=== PATIENT | male | born 1970 | race Hispanic/Latino ===

== ENCOUNTER 2021-02-23 14:49 | Observation (INO) | payer SELFPAY ==
[2021-02-23 15:31] LABS: Absolute Lymphocytes (CBC) 1.1 K/uL (0.7-4.9); Basophils % 0.3 % (0-1.3); Hematocrit 44.5 % (39.6-49.0); Lymphocytes % 18.5 % (15.3-44.8); MPV 6.9 fL (7.6-11.3)
[2021-02-23 15:50] LABS: Protime INR 1.05
[2021-02-23 15:51] LABS: BUN Blood Urea Nitrogen 11 mg/dL (7-18); Bicarbonate 28 mmol/L (21-32); Glucose Level 103 mg/dL (74-106); Magnesium 2.2 mg/dL (1.8-2.4); NT PRO-BNP 41 pg/mL (<125); Potassium 3.5 mmol/L (3.5-5.1); Sodium Level 141 mmol/L (136-145); Troponin (Emerg Dept Use Only) < 0.02 ng/mL (0.0-0.045)
--- NOTE | 2021-02-23 15:52 | RAD REPORT ---
EXAM DESCRIPTION: RAD - Chest Single View - 02/23/2021 3:45 pm CLINICAL HISTORY: CHEST PAIN COMPARISON: None TECHNIQUE: AP portable chest image was obtained 02/23/2021 3:45 pm . FINDINGS: Lungs are clear. Heart and vasculature are normal. No measurable pleural effusion and no p neumothorax. No acute bony abnormality seen. No acute aortic findings suspected. IMPRESSION: No acute cardiopulmonary process.
--- NOTE | 2021-02-23 17:28 | ER ---
Nurse's Notes [facility] Name: Ramos Rebolledo Age: 51 yrs Sex: Male : 1970 Arrival Date: 02/23/2021 Time: 14:50 Bed 15 Private MD: Diagnosis: Chest pain, unspecified Presentation: 02/23 14:52 Chief complaint: EMS states: "Patient [place], he called the [facility] tw5 guard after complaining of chest pain. He said that his left leg is also numb.". Onset of symptoms is unknown. 14:52 Method Of Arrival: EMS: [facility] tw5 14:52 Acuity: DEEPA 2 tw5 14:55 Coronavirus screen: Vaccine status: Patient reports being unvaccinated. Client denies tw5 travel out of the [place] in the last 14 days. At this time, the client does not indicate any symptoms associated with coronavirus-19. Ebola Screen: No symptoms or risks identified at this time. Initial Sepsis Screen: Does the patient meet any 2 criteria? No. Patient's initial sepsis screen is negative. Does the patient have a suspected source of infection? No. Patient's initial sepsis screen is negative. Risk Assessment: Do you want to hurt yourself or someone else? Patient reports no desire to harm self or others. Triage Assessment: 14:59 General: Appears in no apparent distress. Behavior is calm, cooperative, appropriate tw5 for age, Reports "About an hour ago my heart was pounding and it hurt so bad it made me cry. It doesn't hurt anymore. It lasted for about 4-5 min. It felt like squeezing. It really scared me". Pain: Pain currently is 0 out of 10 on a pain scale. at worst was 10 out of 10 on a pain scale. Historical: - Allergies: 14:59 No Known Allergies; tw5 - Immunization history:: Flu vaccine is not up to date. - Social history:: Smoking status: . - Family history:: not pertinent. - Hospitalizations: : No recent hospitalization is reported. Screenin:03 Abuse screen: Denies threats or abuse. Denies injuries from another. Nutritional tw5 screening: No deficits noted. Tuberculosis screening: No symptoms or risk factors identified. Fall Risk None identified. Assessment: 15:03 General: Appears in no apparent distress. tw5 15:03 General: Reports "I drank some coffee this morning, I dont think that i for me". tw5 16:27 Reassessment: Patient appears in no apparent distress at this time. No changes from tw5 previously documented assessment. General: Reports " No chest pain since being here. Just a little pain in my left leg were I limp'. 17:43 General: Nursing staff spoke with ER provider. Aspirin order cancelled due to the fact tw5 patient already received them by EMS. Vital Signs: 14:55 BP 135 / 96; Pulse 66; Resp 20; Temp 98.7; Pulse Ox 100% ; Weight 86.18 kg; Height 5 tw5 ft. 10 in. (177.80 cm); Pain 0/10; 14:59 BP 135 / 96; Pulse 68; Resp 14; Temp 98.7; Pulse Ox 100% ; Pain 0/10; tw5 16:27 BP 115 / 91; Pulse 65; Resp 14; Pulse Ox 100% on R/A; tw5 17:44 BP 113 / 80; Pulse 71; Resp 16; Pulse Ox 100% on R/A; Pain 0/10; tw5 14:55 Body Mass Index 27.26 (86.18 kg, 177.80 cm) tw5 ED Course: 14:50 Patient arrived in ED. as 14:52 Ana Burton is Primary Nurse. tw5 14:54 Triage completed. tw5 14:59 Davian Morfin MD is Attending Physician. rn 14:59 Arm band placed on right wrist. EKG completed in triage. Results shown to MD. tw5 15:03 Patient has correct armband on for positive identification. Bed in low position. Call tw5 light in reach. Side rails up X2. athletic monitor on. Pulse ox on. NIBP on. Door closed. Lights dimmed. Moved to private room. Verbal reassurance given. 15:20 Inserted saline lock: 20 gauge in right antecubital area, using aseptic technique. dh4 Blood collected. 15:46 XRAY Chest (1 view) In Process Unspecified. EDMS 16:27 No apparent distress. Resting quietly. Awaiting lab results. tw5 16:27 No provider procedures requiring assistance completed. tw5 17:27 Sam Plata is Hospitalizing Provider. rn Administered Medications: 17:43 Not Given (already given by EMS prior to arrival. ): Aspirin Chewable Tablet 324 mg PO tw5 once; 81 mg tablets x 4 Outcome: 17:27 Decision to Hospitalize by Provider. rn 02/24 17:22 Patient left the ED. iw Signatures: Dispatcher [employer] EDMS Arianna Contreras Irene, RN RN iw Nieto, Roman, MD MD rn Huhn, Donald [address] [facility] Ana Burton tw5 Corrections: (The following items were deleted from the chart) 02/23 18:49 18:29 CORONAVIRUS+MR.LAB.RUPERTO drawn and sent. [facility] [place]
--- NOTE | 2021-02-23 17:28 | EDPHYS ---
Physician Documentation [facility] Name: Ramos Rebolledo Age: 51 yrs Sex: Male : 1970 Arrival Date: 02/23/2021 Time: 14:50 Bed 15 Private MD: ED Physician Davian Morfin HPI: 02/23 17:22 This 51 yrs old Male presents to ER via EMS with complaints of Chest Pain. rn 17:22 The patient or guardian reports chest pain that is located primarily in the substernal rn area. Onset: just prior to arrival. The pain radiates to the left arm. Associated signs and symptoms: Pertinent positives: diaphoresis, palpitations, Pertinent negatives: abdominal pain, syncope, vomiting. The chest pain is described as crushing, a heaviness. Duration: The patient or guardian reports a single episode, that is now resolved. Modifying factors: The symptoms are alleviated by nothing. the symptoms are aggravated by nothing. Severity of pain: At its worst the pain was severe in the emergency department the pain has resolved. The patient has experienced a previous episode. The patient has not recently seen a physician. Patient reports substernal crushing chest pain that radiates to the left arm. Began while cooking. Lasted approximately 10 to 20 minutes and now resolved. States had similar pain just not as bad 2 weeks ago. No known cardiac problems. No trauma. Does not feel ill or sick.. Historical: - Allergies: 14:59 No Known Allergies; tw5 - Immunization history:: Flu vaccine is not up to date. - Social history:: Smoking status: . - Family history:: not pertinent. - Hospitalizations: : No recent hospitalization is reported. ROS: 17:22 Constitutional: Negative for fever, chills, and weight loss, Eyes: Negative for injury, rn pain, redness, and discharge, Neck: Negative for injury, pain, and swelling, Cardiovascular: Positive for chest pain Respiratory: Negative for shortness of breath, cough, wheezing, and pleuritic chest pain, Abdomen/GI: Positive for nausea Back: Negative for injury and pain, MS/Extremity: Positive radiation to left arm Skin: Negative for injury, rash, and discoloration, Neuro: Negative for headache, weakness, and seizure. 17:22 All other systems are negative. Exam: 15:29 ECG was reviewed by the Attending Physician. rn 17:22 Constitutional: This is a well developed, well nourished patient who is awake, alert, rn and in no acute distress. Head/Face: Normocephalic, atraumatic. Eyes: Periorbital areas with no swelling, redness, or edema. Cardiovascular: Regular rate and rhythm. No pulse deficits. Respiratory: No increased work of breathing, no retractions or nasal flaring. Abdomen/GI: Soft, non-tender Skin: Warm, dry MS/ Extremity: Pulses equal, no cyanosis. Neurovascular intact. Full, normal range of motion. Equal circumference. Neuro: Awake and alert, GCS 15, oriented to person, place, time, and situation. Cranial nerves II-XII grossly intact. Motor strength 5/5 in all extremities. Sensory grossly intact. Vital Signs: 14:55 BP 135 / 96; Pulse 66; Resp 20; Temp 98.7; Pulse Ox 100% ; Weight 86.18 kg; Height 5 tw5 ft. 10 in. (177.80 cm); Pain 0/10; 14:59 BP 135 / 96; Pulse 68; Resp 14; Temp 98.7; Pulse Ox 100% ; Pain 0/10; tw5 16:27 BP 115 / 91; Pulse 65; Resp 14; Pulse Ox 100% on R/A; tw5 17:44 BP 113 / 80; Pulse 71; Resp 16; Pulse Ox 100% on R/A; Pain 0/10; tw5 14:55 Body Mass Index 27.26 (86.18 kg, 177.80 cm) tw5 MDM: 14:59 Patient medically screened. rn 17:22 Differential diagnosis: acute myocardial infarction, acute pericarditis, anxiety, rn coronary artery disease costochondritis, esophagitis, gastroesophageal reflux disease (GERD), pleurisy, pneumothorax, pulmonary embolus, stable angina. HEART Score: History: Moderately Suspicious (1), ECG: Normal (0), Age: > 45 and < 65 years (1), Risk Factors: No Risk Factors Known (0), Troponin: < or = 1 x Normal Limit (0), Total Score = 2. The patient was given aspirin in the Emergency Department. 17:26 Data reviewed: vital signs, nurses notes, lab test result(s), EKG, radiologic studies, rn plain films, and as a result, I will admit patient. Data interpreted: library monitor: rate is 65 beats/min, rhythm is normal sinus rhythm, regular, with no ectopy, Interpretation: normal rate, normal rhythm, Pulse oximetry: on room air is 100 %. Interpretation: normal. Counseling: I had a detailed discussion with the patient and/or guardian regarding: the historical points, exam findings, and any diagnostic results supporting the discharge/admit diagnosis, lab results, radiology results, the need for further work-up and treatment in the hospital. Response to treatment: the patient's symptoms have resolved after treatment, the patient's condition has returned to base line, and as a result, I will admit patient. Admission orders: after a detailed discussion of the patient's condition and case, the admit orders are written by me. ED course: Admitted to hospitalist service for chest pain w/u. . 02/23 15:06 Order name: Basic Metabolic Panel; Complete Time: 15:52 rn 02/23 15:06 Order name: CBC with Diff; Complete Time: 15:52 rn 02/23 15:06 Order name: Magnesium; Complete Time: 15:52 rn 02/23 15:06 Order name: NT PRO-BNP; Complete Time: 15:52 rn 02/23 15:06 Order name: PT-INR; Complete Time: 15:52 rn 02/23 15:06 Order name: Troponin (emerg Dept Use Only); Complete Time: 15:52 rn 02/23 15:06 Order name: D-Dimer; Complete Time: 15:52 rn 02/23 18:49 Order name: SARS-COV-2 RT PCR EDMS 02/23 23:25 Order name: Troponin I EDMS 02/24 06:36 Order name: CBC with Automated Diff EDMS 02/24 07:04 Order name: Comprehensive Metabolic Panel EDMS 02/24 07:04 Order name: Phosphorus EDMS 02/24 07:04 Order name: Lipid Profile EDMS 02/23 15:06 Order name: XRAY Chest (1 view); Complete Time: 15:56 rn 02/23 15:06 Order name: EKG; Complete Time: 15:07 rn 02/23 15:06 Order name: Cardiac monitoring; Complete Time: 15:13 rn 02/23 15:06 Order name: EKG - Nurse/Tech; Complete Time: 15:13 rn 02/23 15:06 Order name: IV Saline Lock; Complete Time: 15:13 rn 02/23 15:06 Order name: Labs collected and sent; Complete Time: 15:13 rn 02/23 15:06 Order name: O2 Per Protocol; Complete Time: 15:13 rn 02/23 15:06 Order name: O2 Sat Monitoring; Complete Time: 15:13 rn 02/23 18:38 Order name: CONS Physician Consult EDWY 02/24 07:04 Order name: T4 Free EDWY 02/24 07:04 Order name: Magnesium EDMS 02/24 07:04 Order name: Thyroid Stimulating Hormone EDMS 02/24 07:11 Order name: Troponin I EDWY 02/24 13:44 Order name: NM EDWY EC:29 Rate is 60 beats/min. Rhythm is regular. QRS Latta is Normal. MD interval is normal. QRS rn interval is normal. QT interval is normal. No Q waves. T waves are Normal. No ST changes noted. Clinical impression: Normal ECG. Interpreted by me. Reviewed by me. Administered Medications: 17:43 Not Given (already given by EMS prior to arrival. ): Aspirin Chewable Tablet 324 mg PO tw5 once; 81 mg tablets x 4 Disposition Summary: 02/23/21 17:27 Hospitalization Ordered Hospitalization Status: Observation rn Provider: Sam Plata rn Condition: Stable rn Problem: new rn Symptoms: have improved rn Bed/Room Type: Standard rn Location: [facility] ER HOLD(02/23/21 23:44) tl1 Room Assignment: ERHOLD-(02/23/21 23:44) tl1 Diagnosis - Chest pain, unspecified rn Forms: - Medication Reconciliation Form rn - SBAR form rn Signatures: Dispatcher [employer] [facility] Davian Morfin MD MD rn Lasagna, Tonya, RN RN [email or web address] Ana Burton tw5 Corrections: (The following items were deleted from the chart) 18:49 18:08 CORONAVIRUS+MR.LAB.COLTENZ ordered. [facility] :44 17:27 Telemetry/MedSurg (observation) rn tl1 23:44 17:27 rn tl1
[2021-02-23] MEDS ORDERED: ASPIRIN 81 MG CHEWABLE TABLET ONE (18:04)
--- NOTE | 2021-02-23 21:10 | P.HP ---
Certification for Inpatient Patient admitted to: Observation With expected LOS: <2 Midnights Patient will require the following post-hospital care: None Practitioner: I am a practitioner with admitting privileges, knowledge of patient current condition, hospital course, and medical plan of care. Services: Services provided to patient in accordance with Admission requirements found in Title 42 Section 412.3 of the Code of Federal Regulations Patient History Date of Service: 02/23/21 Reason for admission: chest pain History of Present Illness: Mr. Rebolledo is a 51 yo M who presents with 10/10 sternal chest pressure radiating down the left arm beginning at 11:30am while he was cooking. He reports diaphoresis, palpitations and SOB. At bedside, pain has now improved. He says two weeks ago, he had a similar episode but the pain was not nearly this bad. He has no known past medical history and takes no medications daily.He does not smoke. Denies family history of heart disease and diabetes. Initial troponin and EKG wnl. - Past Medical/Surgical History Diabetic: No Past Medical History: Patient denies medical history -: R leg surgery - Family History Family History: Reviewed- Non-Contributory - Social History Smoking Status: Never smoker Alcohol use: Yes CD- Drugs: No Caffeine use: Yes Place of Residence: Home Review of Systems 10-point ROS is otherwise unremarkable Respiratory: Shortness of Breath Cardiovascular: Chest Pain, Palpitations Physical Examination - Physical Exam General: Alert, In no apparent distress HEENT: Atraumatic, PERRLA, Mucous membr. moist/pink, EOMI, Sclerae nonicteric Neck: Supple, 2+ carotid pulse no bruit, No LAD, Without JVD or thyroid abnormality Respiratory: Clear to auscultation bilaterally, Normal air movement Cardiovascular: Regular rate/rhythm, Normal S1 S2 Gastrointestinal: Normal bowel sounds, No tenderness Musculoskeletal: No tenderness Integumentary: No rashes Neurological: Normal gait, Normal speech, Normal strength at 5/5 x4 extr, Normal tone, Normal affect Lymphatics: No axilla or inguinal lymphadenopathy - Studies Laboratory Data (last 24 hrs) 02/23/21 15:19: PT 12.1, INR 1.05 02/23/21 15:19: WBC 6.00, Hgb 15.4, Hct 44.5, Plt Count 228 02/23/21 15:19: Sodium 141, Potassium 3.5, BUN 11, Creatinine 0.73, Glucose 103, Magnesium 2.2 Assessment and Plan - Problems (Diagnosis) (1) Chest pain Current Visit: Yes Status: Acute Qualifiers: Chest pain type: unspecified Qualified Code(s): R07.9 - Chest pain, unspecified - Plan on telemetry, cardiology consulted trend troponins, repeat EKG in the AM daily ASA, BB, statin PRN morphine and NTG lipid panel and thyroid panel pending BP stable, continue to monitor DVT ppx Discharge Plan: Home Plan to discharge in: 24 Hours - Advance Directives Does patient have a Living Will: No Does patient have a Durable POA for Healthcare: No - Code Status/Comfort Care Code Status Assessed: Yes (full code ) Critical Care: No Time Spent Managing Pts Care (In Minutes): 70
[2021-02-23] MEDS ORDERED: NITROGLYCERIN 0.4 MG/TAB SL PRN (21:35)
[2021-02-23] MEDS ORDERED: ACETAMINOPHEN 500 MG TAB PO PRN (21:35)
[2021-02-23] MEDS ORDERED: ONDANSETRON 4 MG/2 ML VIAL IV PRN (21:35)
[2021-02-23] MEDS ORDERED: MORPHINE 2 MG/ML SYR IV PRN (21:35)
[2021-02-23] MEDS ORDERED: ATORVASTATIN 40 MG TAB PO SCH (21:35)
[2021-02-23 22:55] VITALS: O2SAT 100
[2021-02-24] MEDS ORDERED: ATORVASTATIN 20 MG TAB ONE (00:07)
[2021-02-24] MEDS ORDERED: ACETAMINOPHEN 500 MG TAB ONE (00:07)
[2021-02-24 04:08] VITALS: TEMP 97
[2021-02-24] MEDS ORDERED: METOPROLOL TAR 25 MG TAB PO SCH (06:00)
[2021-02-24 06:33] LABS: Basophils % 0.8 % (0-1.3); Hematocrit 37.7 % (39.6-49.0); Lymphocytes % 30.5 % (15.3-44.8); RBC Red Blood Cell Count 3.94 M/uL (4.33-5.43)
[2021-02-24 07:00] LABS: ALT/SGPT 119 U/L (12-78); Albumin 2.6 g/dL (3.4-5.0); Alkaline Phosphatase 99 U/L (45-117); BUN Blood Urea Nitrogen 10 mg/dL (7-18); Bicarbonate 27 mmol/L (21-32); Bilirubin Total 1.3 mg/dL (0.2-1.0); Glucose Level 89 mg/dL (74-106); HDL Cholesterol 32 mg/dL (40-60); LDL Cholesterol, Calculated 50 (<130); Protein, Total 6.4 g/dL (6.4-8.2); Sodium Level 148 mmol/L (136-145)
[2021-02-24 07:03] LABS: AST/SGOT 111 U/L (15-37); Magnesium 1.9 mg/dL (1.8-2.4); Potassium 3.7 mmol/L (3.5-5.1)
[2021-02-24] MEDS ORDERED: KCL 20 MEQ/100 mL IVPB 0 MEQ/0 ML BAG IV ONE (07:07)
[2021-02-24] MEDS ORDERED: REGADENOSON 0.4 MG/5 ML SYR IV ONE (07:23)
[2021-02-24] MEDS ORDERED: ASPIRIN EC 81 MG TAB PO ONE (08:59)
[2021-02-24] MEDS ORDERED: ENOXAPARIN 40 MG/0.4 ML SQ SCH (09:00)
[2021-02-24] MEDS ORDERED: ENOXAPARIN 40 MG/0.4 ML SQ ONE (09:00)
[2021-02-24] MEDS ORDERED: INFLUENZA VACCINE (for 6+ mo) 0.5 ML DOSE IMVAC ONE ×2 (09:00)
[2021-02-24] MEDS ORDERED: ASPIRIN EC 81 MG TAB PO SCH (09:00)
--- NOTE | 2021-02-24 13:43 | RAD REPORT ---
EXAM DESCRIPTION: NM - Rest Stress Cardiac Imaging - 02/24/2021 1:30 pm CLINICAL HISTORY: CP Chest pain. COMPARISON: No comparisons TECHNIQUE: The patient was administered approximately 10mCi of Tc 99m Sestamibi prior to resting SPE CT imaging of the heart. The patient was then administered approximately 30 mCi of Tc 99m Sestamibi f ollowing exercise or pharmacologic stress. Multiplanar SPECT images were reviewed. FINDINGS: No stress induced ischemic defect is seen to suggest stress induced ischemia. No fixed def ect is seen to suggest hibernating myocardium or scarred myocardium. The end diastolic volume is 123 ml, the end systolic volume is 57 ml, and the ejection fraction is 54 %. IMPRESSION: No stress induced ischemia.
[2021-02-24 16:02] VITALS: BP 112/80
--- NOTE | 2021-02-24 16:45 | EKG ---
Test Date: 2021-02-23 Test Time: 15:00:15 Bdr: MEAGAN MEASUREMENT RESULTS: Intervals: Rate: 60 DE: 126 QRSD: 92 QT: 398 QTc: 398 [place]: P: 19 DE: 126 QRS: 26 T: 47 INTERPRETIVE STATEMENTS: Normal sinus rhythm Normal ECG No previous ECG available for comparison Electronically Signed On 02-24-21 16:42:55 CDT by Bert Yeung
--- NOTE | 2021-02-25 08:22 | TREADPHA ---
DX: CHEST PAIN Date of Study: 02/24/21 Ht: 5' 10 " Wt: 190 lb 0 oz Consulting Physician: MOHSEN MEDICATIONS: ASPIRIN, LIPITOR, LOPRESSOR, LOVENOX, NITROSTAT HISTORY: HYPERTENSION PHYSICIAL EXAMINATION: RESTING B.P.: 115/80 RESTING H.R.: 67 RESTING EKG: NORMAL PROTOCOL: LEXISCAN EXERCISE TIME: 3:30 B.P. AT PEAK STRESS: 112/84 IMPRESSION: LEXISCAN INJECTED. CARDIOLITE INJECTED (NUCLEAR MEDICATION REPORT). NO COMPLAINTS OF CHEST PAIN. NO SUPRA VENTRICULAR TACHYCARDIA. NO ARRHYTMIAS NOTED.
--- NOTE | 2021-02-25 08:32 | ECHO ---
HEIGHT: 5 ft 10 in WEIGHT: 190 lb 0 oz DATE OF STUDY: 02/24/[address]: Bert Yeung MD 2-DIMENSIONAL: YES M.MODE: YES DOPPLER: YES COLOR FLOW: YES TDS: PORTABLE: DEFINITY: BUBBLE STUDY: DIAGNOSIS: CHEST PAIN CARDIAC HISTORY: CATHERIZATION: NO SURGERY: NO PROSTHETIC VALVE: NO PACEMAKER: NO MEASUREMENTS (cm) DIASTOLIC (NORMALS) SYSTOLIC (NORMALS) IVSd 0.8 (0.6-1.2) LA Diam 3.1 (1.9-4.0) LVEF 51% LVIDd 4.5 (3.5-5.7) LVIDs 3.3 (2.0-3.5) %FS 26% LVPWd 1.0 (0.6-1.2) Ao Diam 3.2 (2.0-3.7) 2 DIMENSIONAL ASSESSMENT: RIGHT ATRIUM: LEFT ATRIUM: RIGHT VENTRICLE: LEFT VENTRICLE: TRICUSPID VALVE: MITRAL VALVE: PULMONIC VALVE: AORTIC VALVE: PERICARDIAL EFFUSION: AORTIC ROOT: LEFT VENTRICULAR WALL MOTION: DOPPLER/COLOR FLOW: COMMENTS: NORMAL 2-DIMENSIONAL ECHOCARIOGRAM WITH DOPPLER. NO WALL MOTION ABNORAMLITY. TECHNOLOGIST: ASH AZUL
--- NOTE | 2021-02-26 16:48 | CON ---
Date of Consultation: 02/24/2021 The patient is a 51-year-old male admitted to Dr. Berman's service for chest pain. He was admitted on 02/23/2021. I saw the patient on 02/24/2021. History Of Present Illness: Mr. Rebolledo has no significant past medical history. He does not take any medication. He came in with a sharp stabbing chest pain over the left side without any nausea, vomiting, diaphoresis, PND, orthopnea, pedal edema, palpitations, or syncope. He has had a completel y negative workup so far. Past Medical History: Negative. Allergies: NONE. Review of Systems: Negative. Social History: Negative. Family History: Noncontributory. Physical Examination: Vital Signs: Stable, afebrile. HEENT: Negative. Neck: Supple without any bruit, lymphadenopathy, JVD, or thyromegaly. Chest: Clear to auscultation and percussion. Cardiac: Revealed a regular rhythm and rate. No murmurs, gallops, or rubs. Abdomen: Benign. Extremities: Revealed no clubbing, cyanosis, or edema. Diagnostic Data: All normal. Impression And Plan: Atypical chest pain in a patient with very low risk profile for coronary artery disease. Echocardiogram and Lexiscan are pending. We will see what that shows before making any fu rther decisions. I have a feeling his symptoms are more pleuritic or musculoskeletal. ENDY/CHELY Voice ID: [id number] Report ID: [id number]
== END 2021-02-24 17:29 | disposition home or self-care (01) ==
LOC: ER 14:49 → ERHOLD 18:37
PROVIDERS: ADMIT Hospitalist; ATTEND Hospitalist
DX: R07.89 Other chest pain (principal); R00.2 Palpitations; R06.02 Shortness of breath; Z23 Encounter for immunization; Z20.822 Contact with and (suspected) exposure to COVID-19
CPT/HCPCS: 36415; 71045; 78452; 80048; 80053; 80061; 83735; 83880; 84100; 84439; 84443; 84484; 85025; 85379; 85610; 90471; 93005; 93017; 93306; 94760; 99284; A9500; G0378; J1650; J2785; J3480; Q2035; U0003